=== PATIENT | female | born 1955 | race African-American/Black ===

== ENCOUNTER → 2017-02-07 | Outpatient (CLI) | payer OTHER ==
--- NOTE | ~2017-02-07 | MY29 ---
[facility] A Service of [facility] RADIOLOGY TEXT RESULTS PATIENT: COLIN FRIAS LOCATION: [facility] : 55 UNIT #: [id number] AGE: [address]: Cara Celestin APRN SEX: F ORDER DR: [id number] [facility] [address]. [place], [place] [address] [id number] O MR#: [id number] Acc #: [id number] NAME: COLIN FRIAS : 1955 SEX: F STUDY DATE/TIME: 02/07/2017 7:51 UNIT: [facility] ROOM: STUDY DESCRIPTION: MY [facility] SCREENING W/ CAD BILAT Attending Physician: Cara Celestin A.P.R.N. Referring Physician: Cara Celestin A.P.R.N. Ordering Physician: Cara Celestin A.P.R.N. Primary Care Physician: Cara Celestin A.P.R.N. MEDICAL IMAGING REPORT This report is preliminary unless electronic signature is present EXAM Digital screening mammogram 02/07/2017 HISTORY 61-year-old woman strong family history, sister age 43. Annual screen. COMPARISON Mammograms date to 10/30/2010 with most recent 06/22/2015. FINDINGS Digital imaging of each breast was completed utilizing a two-view examination of each breast in craniocaudal and mediolateral-oblique projections. Review and interpretation of digital mammograms include a second review in conjunction with FDA-approved CAD device. There is a normal parenchymal presentation bilaterally consistent with the patient's age. There are no breast masses imaged and no parenchymal asymmetry is visualized. There are no suspicious microcalcifications and I see no focal architectural disturbance. IMPRESSION Negative screening digital mammogram. One-year followup recommended. ADDENDUM Breast parenchyma is fatty replaced. Patients over the age of 40 are entered into a reminder system with target due date for the next mammogram. A result letter will also be sent to the patient. BIRADS: 1 Negative STS. [facility] A Service of [facility] & [facility] RADIOLOGY TEXT RESULTS PATIENT: COLIN FRIAS LOCATION: [facility] #: [id number] : 55 UNIT #: [id number] AGE: [address]: Cara Celestin APRN SEX: F ORDER DR: Dictated by... Kali Cuba M.D. THIS IS AN ELECTRONICALLY VERIFIED REPORT Kali Cuba M.D. at 02/07/2017 10:54 AM UMER/nicola TD: 02/07/2017 08:54 JOB #: [id number] MEDICAL IMAGING REPORT Page 1 of 1 COPY
== END | disposition home or self-care (01) ==
LOC: CWCC 07:30
DX: Z12.31 Encounter for screening mammogram for malignant neoplasm of breast (principal); Z80.3 Family history of malignant neoplasm of breast; R92.8 Other abnormal and inconclusive findings on diagnostic imaging of breast
CPT/HCPCS: G0202